=== PATIENT | male | born 1965 | race Caucasian/White ===

== ENCOUNTER → 2021-01-20 | Outpatient (CLI) | payer MEDICARE, OTHER ==
--- NOTE | 2021-01-20 18:12 | CONS ---
CONSULTATION REASON FOR CONSULTATION: Sleep apnea. This is a 55-year-old male patient coming to establish himself regarding his sleep apnea in our sleep center here in [place], [place]. Prior to that, the patient used to live in [place], [place]. He underwent a previous sleep evaluation through [facility] and back then he was diagnosed having severe BEATRICE with an AHI of 75. Since then he has been using a CPAP unit which is a Dream Station, and this has been set to an APAP mode at a minimum pressure of 5, maximum pressure of 20. He has had excellent response to CPAP therapy. Currently his current machine is malfunctioning and the patient is hoping to update his CPAP unit. On a separate note, this current machine that the patient is using is on a nationwide recall. At any rate, despite the recall, the patient continues to use the same machine. The humidifications system is not functional, and this is making him quite comfortable. Nevertheless, based on 30- day compliance data, the patient used his machine 28 out of the past 30 days and he has achieved more than 4 hours more than 90% of the time. His average CPAP is around 6.9 hours per night. He has excellent mask fit. His AHI is down to 4.4 while on treatment and the average pressure delivered by the machine is around 15.2 cm of water. No periodic breathing. No snoring while using the CPAP and the patient is using a full- face mask, Simplus, medium size. He is going to bed around 9 p.m., waking up at 5:30 a.m. in the morning, averaging around 7-8 hours of sleep, and he feels quite refreshed while using his CPAP. No recent weight gain or weight loss. No major hypersomnia or sleepiness during the day. PAST MEDICAL HISTORY: Obstructive sleep apnea, obesity, chronic back and neck pain, hypertension, diabetes mellitus, hyperlipidemia and chronic pain. PAST SURGICAL HISTORY: Past surgical history includes neck fusion. DRUG ALLERGIES: NOT KNOWN. OUTPATIENT MEDICATION LIST: Attached. Medication list includes oxycodone/acetaminophen 10/325 one tablet every 6 hours, baclofen 20 mg on an as-needed basis 3 times a day, pregabalin 100 mg p.o. 3 times a day, Trulicity 1.5 mg injections, metformin 850 mg 1 tablet twice a day, Lipitor 10 mg p.o. daily, calcium supplements, Zoloft 50 mg p.o. daily. SOCIAL HISTORY: The patient is an ex-smoker. No history of alcoholism. No history of IV drugs. FAMILY HISTORY: Mother of complications of alcoholism. Father had coronary artery disease and of complications of myocardial infarction. REVIEW OF SYSTEMS: Fourteen-point review of system was done. In summary, the patient does not take any naps during the day. He tries to avoid any naps. He sleeps with a partner. He sleeps on his side and on his back. He wakes up frequently in the middle of the night despite being on CPAP therapy. His current machine, as stated, is not fully functional. No sleep paralysis. No hallucinations. No cataplexy. No history of any motor vehicle accident because of feeling drowsy or sleepy. No anxiety. No depression. No substance abuse. No nocturnal chest pain, heartburn or any other new complaints. No fever. No chills. No other constitutional symptoms. Weight has been essentially stable over the years. PHYSICAL EXAMINATION: BP is 119/76, pulse 77, respirations 16, temperature 98.6, saturation 96% on room air. Height is 5 feet 8 inches, weight is 253, BMI 37.9. Buford score is 4. Neck size 21- 1/2 inches. GENERAL APPEARANCE: Calm, comfortable. HEAD: Atraumatic, normocephalic. NECK: Supple. No JVD. No goiter or neck masses. Mallampati class 4. LUNGS: Diminished. Otherwise clear. HEART: Heart sounds are regular rate and rhythm. Normal S1, S2. No S3, S4. No murmurs. ABDOMEN: Soft, nontender. No organomegaly. No direct tenderness, rebound tenderness or guarding. EXTREMITIES: No edema. No cyanosis or clubbing. IMPRESSION: 1. Obstructive sleep apnea. The patient by history has severe obstructive sleep apnea. The patient is coming in for re-evaluation. He is interested in updating his CPAP machine. His current machine is on recall and is malfunctioning. 2. Chronic hypersomnia related to obstructive sleep apnea. 3. Obesity. BMI of 37.9. 4. Hypertension. 5. Diabetes mellitus. 6. Chronic neck and back pain. PLAN: The patient is in need of a split-night study. The split night should be able to re- establish the severity of sleep apnea, and following that the patient can undergo a CPAP titration, during which the adequate CPAP pressure will be picked to treat his obstructive sleep apnea along with the appropriate mask interface. This will be scheduled to be done at [facility]. Following that, the patient will be offered a newer-generation ResMed unit. He has a Simplus full-face mask. Encourage weight loss. Optimize sleep hygiene measures. Will continue to follow. OLEG / JOANNEN: [id number] /
== END ==
LOC: SLEEP 14:01
PROVIDERS: ATTEND Internal Medicine Critical Care Medicine
DX: G47.33 Obstructive sleep apnea (adult) (pediatric) (principal); E11.9 Type 2 diabetes mellitus without complications; E66.9 Obesity, unspecified; I10 Essential (primary) hypertension; Z68.37 Body mass index [BMI] 37.0-37.9, adult; E78.5 Hyperlipidemia, unspecified; Z87.891 Personal history of nicotine dependence; Z79.84 Long term (current) use of oral hypoglycemic drugs; Z79.899 Other long term (current) drug therapy; Z99.89 Dependence on other enabling machines and devices
CPT/HCPCS: 99211

== ENCOUNTER → 2023-05-03 | Outpatient (CLI) | payer MEDICARE ==
--- NOTE | 2023-05-03 16:30 | P.PN ---
Progress Note - Text Progress Note Date: 05/03/23 On today's evaluation of 05/03/2023, I'm seeing the patient for a follow-up regarding his BEATRICE treatment. The patient is a 58-year-old male patient with known history of obstructive sleep apnea. The patient has severe disease with an AHI of 75. He is currently utilizing a CPAP unit at a pressure of 5/20 cm of water and is utilizing the APAP mode. During his last evaluation, I switched him to a Airfit F30 20 fullface mask large size. The patient is doing extremely well. He has been very compliant to CPAP therapy. I check compliancy and based on the data that has been collected between 04/03/2023 and 05/02/2023, the patient's overall compliancy was 90%, the patient achieved more than 4 hours of usage 83% of the time. The patient has been averaging about 6 hours and 31 minutes of CPAP use per night. His AHI is down to 6.6 with a central apnea index of 2.8. The P90 5th percentile pressure is at 17.5. No major hypersomnia or sleepiness during the day. No nighttime chest pain or shortness of breath. No heartburn. No daytime hypersomnia or sleepiness. His treatment is succ essful for now. His weight is currently at goal 58 which is few pounds higher compared to his last evaluation BP is 127/80, pulse is 80, respirations 16, temperature 98.2 and weight is 258 The patient appeared well nourished and normally developed. Vital signs as documented. Head exam is unremarkable. No scleral icterus or corneal arcus noted. Neck is without jugular venous distension, thyromegaly, or carotid bruits. Carotid upstrokes are brisk bilaterally. Lungs are clear to auscultation and percussion. Cardiac exam reveals the PMI to be normally sized and situated. Rhythm is regular. First and second heart sounds normal. No murmurs, rubs or gallops. Abdominal exam reveals normal bowel sounds, no masses, no organomegaly and no aortic enlargement. Extremities are nonedematous and both femoral and pedal pulses are normal.Examination of the skin revealed no evidence of significant rashes, suspicious appearing nevi or other concerning lesions.Neurologically, the patient is awake and alert and the patient does not have any focal neurological deficit. Cranial nerves are essentially intact. Assessment Obstructive sleep apnea, COPD with an AHI of 75. The patient is undergoing a successful APAP treatment with pressures of 5/20 cm of water. The patient is utilizing an Airfit F20 fullface mask large size Chronic hypersomnia, improved Diabetes mellitus type 2 Hypertension Chronic back and neck pain History of chronic depression maintained on Cymbalta Plan Continue efforts to lose weight. Optimize sleep hygiene measures. Continue the same CPAP settings for now. Maintained the patient on a air fit F20 fullface mask. Hemovac in the office in 12 months time and follow-up. Treatment is successful. No other adjustments needed.
== END ==
LOC: 3 N SLEEP 15:07
PROVIDERS: ATTEND Internal Medicine Critical Care Medicine
DX: G47.33 Obstructive sleep apnea (adult) (pediatric) (principal); G47.10 Hypersomnia, unspecified; E11.9 Type 2 diabetes mellitus without complications; J44.9 Chronic obstructive pulmonary disease, unspecified; I10 Essential (primary) hypertension; F32.A Depression, unspecified; G89.29 Other chronic pain; M54.9 Dorsalgia, unspecified; M54.2 Cervicalgia
CPT/HCPCS: 99212